=== PATIENT | female | born 2000 | race Hispanic/Latino ===

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

== ENCOUNTER 2022-11-26 09:36 | Emergency (ER) | payer OTHER, SELFPAY ==
[2022-11-26 09:49] VITALS: BP 128/72; PULSE 71; RESP 16; TEMP 36.6; O2SAT 99
--- NOTE | 2022-11-26 09:59 | ED.UPPEXIN ---
HPI - Extremity Injury (Upper) General Chief Complaint: Extremity Injury, Upper Stated Complaint: finger injury Time Seen by Provider: 11/26/22 09:41 History of Present Illness HPI narrative: 22-year-old female presents the emergency room for evaluation of atraumatic left middle finger pain. Patient states that she has noted some swelling, tenderness and redness to her left middle finger next to the nail. Denies any purulent drainage. Related Data Allergies Allergy/AdvReac Type Severity Reaction Status Date / Time No Known Allergies Allergy Unverified 06/17/15 19:52 Review of Systems Review of Systems: CONSTITUTIONAL: Denies fever, chills, or sweats. EYES: Denies visual changes, redness, or discharge. ENT: Denies rhinorrhea, congestion, sore throat, or otalgia. CARDIOVASCULAR: Denies chest pain, palpitations, or edema. RESPIRATORY: Denies cough or dyspnea. GASTROINTESTINAL: Denies abdominal pain, nausea, vomiting, or diarrhea. GENITOURINARY: Denies dysuria or hematuria. SKIN: Denies rash or itching. MUSCULOSKELETAL: Denies back pain, joint pain, or myalgia. NEUROLOGIC: Denies headache, numbness, dizziness, or weakness. PSYCHIATRIC: Denies anxiety or depression. Exam Narrative: GENERAL: Well-appearing, well-nourished, no physical limitations, and in no acute distress. HEAD: Normocephalic, atraumatic. EYES: Conjunctivae normal, PERRLA and EOMI. CHEST: Clear to auscultation. No respiratory distress. No wheezes rales or rhonchi. HEART: Regular rate and rhythm. No murmur heard. Normal peripheral pulses. BACK: No CVA tenderness; No cervical/thoracic/lumbar tenderness, step-offs, bony abnormality; FROM EXTREMITIES: left middle finger: +TTP with STS and erythema to the proximal nail fold SKIN: Warm, dry, no rash. No noted wounds NEURO: No focal deficits. Alert and oriented x3. MAEW. CN's II-XI intact bilaterally, normal gait PSYCH: Cooperative. Normal mood and affect. Course Vital Signs Vital signs: Vital Signs Temperature 36.6 C 11/26/22 09:49 Pulse Rate 71 11/26/22 09:49 Respiratory Rate 16 11/26/22 09:49 Blood Pressure 128/72 11/26/22 09:49 Pulse Oximetry 99 11/26/22 09:49 Oxygen Delivery Room Air 11/26/22 09:49 Temperature 36.6 C 11/26/22 09:49 Pulse Rate 71 11/26/22 09:49 Respiratory Rate 16 11/26/22 09:49 Blood Pressure 128/72 11/26/22 09:49 Pulse Oximetry 99 11/26/22 09:49 Oxygen Delivery Room Air 11/26/22 09:49 Discharge Plan Discharge Clinical Impression: Paronychia Patient Disposition: Home, Self-Care Condition: Stable Instructions: Antibiotic Form, Paronychia (ED) Prescriptions: New cephalexin 500 mg capsule 500 mg PO Q12H Qty: 14 0RF No Action sulfamethoxazole-trimethoprim [Bactrim DS] 800-160 mg tablet 1 tablet PO BID 3 Days Qty: 6 0RF Follow-up/Referrals: UNKNOWN,DOCTOR [Primary Care Provider] - Time of Disposition: 10:01
== END 2022-11-26 10:36 | disposition home or self-care (01) ==
LOC: ANHED 10:24
PROVIDERS: Emergency Provider Nurse Practitioner Family
DX: L03.012 Cellulitis of left finger (principal)
CPT/HCPCS: 99283